=== PATIENT | male | born 2005 | race Caucasian/White ===

== ENCOUNTER 2025-05-25 14:48 | Outpatient (CLI) | payer MEDICAID, SELFPAY ==
--- NOTE | 2025-05-25 15:15 | MR_ITS ---
WS: [id number] MRI LEFT KNEE NONCONTRAST TECHNIQUE: Axial PD, coronal PD fat sat, coronal PD, sagittal PD, and sagittal PD fat-sat images obtained. CLINICAL INFORMATION: PAIN, JOINT, KNEE, LEFT COMPARISON: None. FINDINGS: Distal quadriceps and patellar tendons are intact. Normal ACL and PCL. Normal bone marrow signal in the femoral condyles and tibial plateau. Medial and lateral meniscus are normal in appearance. No acute appearing meniscal tears. Normal patella. Medial and lateral patellar retinaculum appear intact. Normal medial and lateral collateral ligaments. Normal popliteus. Normal bone marrow signal in the femoral condyles and tibial plateau. MR/MR knee LT wo con* [id number] IMPRESSION: 1. Normal ACL and PCL. 2. No acute appearing meniscal tears. 3. Mild prepatellar soft tissue edema. 4. No other acute findings. Outbridge grading: grade I: focal areas of hyperintensity with normal contour
== END 2025-05-25 14:49 | disposition home or self-care (01) ==
LOC: RAD 14:58
PROVIDERS: PCP Family Medicine; Visit Provider Family Medicine
DX: M25.562 Pain in left knee (principal); R22.42 Localized swelling, mass and lump, left lower limb
CPT/HCPCS: 73721